=== PATIENT | male | born 1980 | race Caucasian/White ===

== ENCOUNTER → 2021-03-08 | Day surgery (SDC) | payer BC, OTHER | END | disposition home or self-care (01) | LOC: JRADIR 10:03 | PROVIDERS: ATTEND Nurse Practitioner Family | PROC: BQ37YZZ Magnetic Resonance Imaging (MRI) of Right Knee using Other Contrast (ICD-10-PCS; principal; 2021-03-08) | DX: S83.241A Other tear of medial meniscus, current injury, right knee, initial encounter (principal); M25.561 Pain in right knee; X58.XXXA Exposure to other specified factors, initial encounter; Y93.9 Activity, unspecified; Y92.9 Unspecified place or not applicable; Y99.9 Unspecified external cause status | CPT/HCPCS: 27369; 70130-TC-FY; 73580-TC-FY; 73722-TC; 77002-TC-FY ==

== ENCOUNTER 2023-08-19 12:27 | Emergency (ER) | payer OTHER ==
[2023-08-19 12:34] VITALS: BP 131/73; PULSE 69; RESP 18; TEMP 97.8; BMI 32.1
[2023-08-19] MEDS ORDERED: predniSONE 20 MG TABLET (UD) PO ONE (13:16)
[2023-08-19] MEDS ORDERED: ACETAMINOPHEN 500 MG TABLET (FP) PO ONE (13:16)
[2023-08-19] MEDS ORDERED: ACETAMINOPHEN 500 MG TABLET (FP) ONE (13:21)
[2023-08-19] MEDS ORDERED: predniSONE 20 MG TABLET (UD) ONE (13:22)
== END 2023-08-19 13:25 | disposition home or self-care (01) ==
LOC: JERFT 12:27
DX: M79.672 Pain in left foot (principal); M77.32 Calcaneal spur, left foot
CPT/HCPCS: 73630-TC-LT; 99283-25